=== PATIENT | female | born 1950 | race Caucasian/White ===

== ENCOUNTER 2016-06-05 19:25 | Inpatient (IN) | payer OTHER ==
[2016-06-05] MEDS ORDERED: ALBUTEROL SO4 0.083% IH SOL 2.5 MG/3 ML VIAL.NEB. NEB ONE ×6 (20:28→23:08)
[2016-06-05] MEDS ORDERED: IPRATROPIUM BR 0.02% 0.5 MG/2.5 ML VIAL.NEB. NEB ONE (20:28)
[2016-06-05] MEDS ORDERED: predniSONE 20 MG TABLET (UD) PO ONE (20:28)
[2016-06-05] MEDS ORDERED: predniSONE 20 MG TABLET (UD) ONE (20:28)
--- NOTE | 2016-06-05 20:29 | PDOC ---
History of Present Illness - History of Present Illness Initial Comments: 06/05/16 20:43 Patient is a 65 year old female with significant medical hx of asthma, hypothyroidism, and sleep apnea who is presenting to the ED with one week of nonproductive cough and wheezing. Patient complains of cough with associated chest pain, headaches, and body aches. The patient reports her cough has significantly worsened over the past few days. Shes been using her asthma pump with minimal relief. The patient is accompanied by her daughter who is also complaining of cough. Denies alcohol and tobacco use. Denies fever, chills, nausea, vomiting, diarrhea. <Sadia Cam - Last Filed: 06/05/16 20:43> - General History Source: Patient Exam Limitations: No Limitations <Ivan Rosa - Last Filed: 06/06/16 01:10> - General Chief Complaint: Asthma Stated Complaint: ASTHMA Time Seen by Provider: 06/05/16 20:18 Past History <Sadia Cam - Last Filed: 06/05/16 20:43> - Past Medical History Asthma: Yes Thyroid Disease: Yes (HYPO) - Surgical History Abdominal Surgery: Yes (TUBAL LIGATION) - Psycho/Social/Smoking Cessation Hx Anxiety: No Suicidal Ideation: No Smoking Status: Yes Smoking History: Never smoked Number of Cigarettes Smoked Daily: 0 Hx Alcohol Use: No Substance Use Type: None <Ivan Rosa - Last Filed: 06/06/16 01:10> - Past Medical History Allergies/Adverse Reactions: Allergies Allergy/AdvReac Type Severity Reaction Status Date / Time No Known Allergies Allergy Verified 06/05/16 19:33 Home Medications: Ambulatory Orders Levothyroxine [Synthroid -] 88 mcg PO DAILY 10/29/15 Montelukast Na [Singulair -] 10 mg PO DAILY 10/29/15 Pantoprazole Sodium [Protonix] 40 mg PO DAILY #30 tablet. 10/29/15 Review of Systems - Review of Systems Comments:: 06/05/16 20:45 GENERAL/CONSTITUTIONAL: Body aches. No fever or chills. No weakness. HEAD, EYES, EARS, NOSE AND THROAT: No change in vision. No ear pain or discharge. No sore throat. CARDIOVASCULAR: Chest pain, shortness of breath. RESPIRATORY: Cough, wheezing. No hemoptysis. GASTROINTESTINAL: No nausea, vomiting, diarrhea or constipation. GENITOURINARY: No dysuria, frequency, or change in urination. MUSCULOSKELETAL: No joint or muscle swelling or pain. No neck or back pain. SKIN: No rash NEUROLOGIC: Headache. No vertigo, loss of consciousness, or change in strength/ sensation. <DorinaSadia - Last Filed: 06/05/16 20:43> *Physical Exam - Vital Signs Last Vital Signs Temp Pulse Resp BP Pulse Ox 98.4 F 20 L 102 H 129/74 96 06/05/16 19:33 06/05/16 19:33 06/05/16 19:33 06/05/16 19:33 06/05/16 19:33 - Physical Exam Comments: 06/05/16 20:45 GENERAL: Awake, alert, and fully oriented, in no acute distress HEAD: No signs of trauma EYES: PERRLA, EOMI, sclera anicteric, conjunctiva clear ENT: Auricles normal inspection, hearing grossly normal, nares patent, oropharynx clear without exudates. Moist mucosa NECK: Normal ROM, supple, no lymphadenopathy, JVD, or masses LUNGS: Expiratory wheezes bilaterally. No crackles HEART: Regular rate and rhythm, normal S1 and S2, no murmurs, rubs or gallops ABDOMEN: Soft, nontender, normoactive bowel sounds. No guarding, no rebound. No masses EXTREMITIES: Normal range of motion, no edema. No clubbing or cyanosis. No cords, erythema, or tenderness NEUROLOGICAL: Cranial nerves II through XII grossly intact. Normal speech, normal gait SKIN: Warm, Dry, normal turgor, no rashes or lesions noted. ENDOCRINE: No increased thirst. No abnormal weight change. HEMATOLOGIC/LYMPHATIC: No anemia, easy bleeding, or history of blood clots. ALLERGIC/IMMUNOLOGIC: No hives or skin allergy. <DorinaSadia - Last Filed: 06/05/16 20:43> - Vital Signs Last Vital Signs Temp Pulse Resp BP Pulse Ox 98.4 F 20 L 102 H 129/74 96 06/05/16 19:33 06/05/16 19:33 06/05/16 19:33 06/05/16 19:33 06/05/16 19:33 <Ivan Rosa - Last Filed: 06/06/16 01:10> ED Treatment Course - Medications Given in the ED: ED Medications Discontinued Medications Generic Name Dose Route Start Last Admin Trade Name Sloane PRN Reason Stop Dose Admin Albuterol Sulfate 3 amp 06/05/16 20:28 06/05/16 20:35 Ventolin 0.083% Nebulizer Soln - NEB 06/05/16 20:29 3 amp ONCE ONE Administration Ipratropium [place] 1 amp 06/05/16 20:28 06/05/16 20:35 Atrovent 0.02% Nebulizer - NEB 06/05/16 20:29 1 amp ONCE ONE Administration Prednisone 60 mg 06/05/16 20:28 06/05/16 20:35 Deltasone - PO 06/05/16 20:29 60 mg ONCE ONE Administration <Sadia Cam - Last Filed: 06/05/16 20:43> - LABORATORY CBC & Chemistry Diagram: 06/05/16 22:23 06/06/16 00:22 <Ivan Rosa - Last Filed: 06/06/16 01:10> Medical Decision Making - Medical Decision Making 06/05/16 22:19 A portion of this note was documented by scribe services under my direction. I have reviewed the details of the note, within reason, and agree with the documentation with the following case summary and management plan written by me. Patient treated in the ED. Nursing notes are reviewed and incorporated into the medical decision-making. Vital signs reviewed. Peripheral IV access obtained by the nurse, laboratory studies are drawn and sent, reviewed and interpreted by myself. Vital Signs Temp Pulse Resp BP Pulse Ox 98.4 F 20 L 102 H 129/74 96 06/05/16 19:33 06/05/16 19:33 06/05/16 19:33 06/05/16 19:33 06/05/16 19:33 65-year-old female with past mental history of hypothyroidism, asthma presents with one week of wheezing. Patient reports that she has been treated for her upper respiratory infection last week with clarithromycin and improved. However , when she stopped, patient continued to have nonproductive cough and wheezing. Denies fevers. Reports some costochondritis with coughing. Patient's been using albuterol pump with some effect. The patient is accompanied by her daughter who also is a patient for an asthma exacerbation. Patient is given couple nebulizers and steroids. Patient continue wheeze so was given IV magnesium. Chest x-ray ordered and reviewed by me which time shows no infiltrates. The patient is improving clinically and appears more comfortable. If patient exam improves, we'll discharge with steroids. Patient's daughter does mention to me that she suspects that there is mold in the house. I instructed her to touch base with her landlord in terms of investigating this mold. 06/06/16 01:08 As of note: Initial HR of 20 was an error. Pt's HR is 102. Pt continued to have persistent wheezing despite numerous nebulizers, steroids, IV magnesium. Given these findings, decision was to admit patient to the hospital for asthma exacerbation. I had talked with the patient again. States that she was treated with clarithromycin for asthma exacerbation last week as well. CBC, BMP 06/05/16 22:23 06/06/16 00:22 CMP Sodium 142 mmol/L (136-145) 06/06/16 00:22 Potassium 3.7 mmol/L (3.5-5.1) 06/06/16 00:22 Chloride 107 mmol/L (98-107) 06/06/16 00:22 Carbon Dioxide 26 mmol/L (21-32) 06/06/16 00:22 Anion Gap 9 (8-16) 06/06/16 00:22 BUN 17 mg/dL (7-18) D 06/06/16 00:22 Creatinine 0.7 mg/dL (0.55-1.02) 06/06/16 00:22 Creat Clearance w eGFR > 60 (>60) 06/06/16 00:22 Random Glucose 148 mg/dL (74-106) H 06/06/16 00:22 Calcium 8.8 mg/dL (8.5-10.1) 06/06/16 00:22 Magnesium 2.9 mg/dL (1.8-2.4) H 06/06/16 00:22 Total Bilirubin 0.3 mg/dL (0.2-1.0) D 06/06/16 00:22 AST 16 U/L (15-37) D 06/06/16 00:22 ALT 28 U/L (12-78) D 06/06/16 00:22 Alkaline Phosphatase 109 U/L (45-117) D 06/06/16 00:22 Total Protein 6.9 g/dl (6.4-8.2) 06/06/16 00:22 Albumin 3.7 g/dl (3.4-5.0) 06/06/16 00:22 <Ivan Rosa - Last Filed: 06/06/16 01:10> *DC/Admit/Observation/Transfer - Attestations Scribe Attestion: 06/05/16 20:46 Documentation prepared by Sadia Cam, acting as medical technologist hematology for Ivan Rosa MD. <Sadia Cam - Last Filed: 06/05/16 20:43> - Discharge Dispostion Admit: Yes <Ivan Rosa - Last Filed: 06/06/16 01:10> Diagnosis at time of Disposition: Exacerbation of asthma - Discharge Dispostion Condition at time of disposition: Stable - Referrals Referrals: Bharathi Cuevas [Primary Care Provider] -
[2016-06-05] MEDS ORDERED: ALBUTEROL SO4 2.5/IPRATROPIUM 0.5 INH SOL 3 ML VIAL.NEB. NEB ONE (20:33)
[2016-06-05] MEDS ORDERED: AZITHROMYCIN 250 MG TABLET (FP) PO ONE (21:51)
[2016-06-05] MEDS ORDERED: MAGNESIUM SULF 50% (8.12 MEQ/2 ML-1 GM VIAL) IVPB ONE (21:54)
[2016-06-05] MEDS ORDERED: MAGNESIUM SULF 50% (8.12 MEQ/2 ML-1 GM VIAL) ONE (22:19)
[2016-06-05 22:50] LABS: BASOPHIL 0.4 % (0-2.0); EOSINOPHIL 3.6 % (0-4.5); MCH 30.1 pg (25.7-33.7); MCHC 33.5 g/dl (32.0-36.0); MEAN CELL VOLUME 89.7 fl (80-96); MEAN PLT VOLUME 9.9 fl (7.5-11.1); NEUTROPHILS 76.2 % (42.8-82.8); PLATELET COUNT 235 K/MM3 (134-434); RDW 14.7 % (11.6-15.6); WHITE BLOOD COUNT 8.9 K/mm3 (4.0-10.0)
[2016-06-06 00:58] LABS: ALBUMIN 3.7 g/dl (3.4-5.0); ANION GAP 9 (8-16); BILIRUBIN,TOTAL 0.3 mg/dL (0.2-1.0); CALCIUM 8.8 mg/dL (8.5-10.1); CO2 26 mmol/L (21-32); CREATININE 0.7 mg/dL (0.55-1.02); GLUCOSE,RANDOM 148 mg/dL (74-106); MAGNESIUM 2.9 mg/dL (1.8-2.4); SGOT/AST 16 U/L (15-37); SGPT/ALT 28 U/L (12-78); TOT PROT 6.9 g/dl (6.4-8.2)
[2016-06-06 00:59] LABS: ALK PHOS 109 U/L (45-117)
--- NOTE | 2016-06-06 01:42 | PN ---
<Kira Espinosa - Last Filed: 06/06/16 01:42> Teaching Attending Note Name of Resident: Aditi Hernandez <Jasbir Macario - Last Filed: 06/06/16 02:41> Teaching Attending Note ATTENDING PHYSICIAN STATEMENT I saw and evaluated the patient. I reviewed the resident's note and discussed the case with the resident. I agree with the resident's findings and plan as documented. SUBJECTIVE: Patient is a 65 year old female, accompanied by daughter, who is presented to the ED with one week of nonproductive cough and wheezing. Patient reported that her cough with associated chest pain, headaches, and body aches. The patient stated her cough has significantly worsened over the past few days. She noted that she had been using her asthma pump to treat symptoms with minimal relief. Daughter who is also complained of a cough. Denies alcohol and tobacco use. Denies fever, chills, nausea, vomiting, diarrhea. Past Medical History: Asthma, hypothyroidism, cholecystitis, and sleep apnea OBJECTIVE: Vital Signs: Last Vital Signs Temp Pulse Resp BP Pulse Ox 97.9 F 100 H 18 128/82 95 06/06/16 01:29 06/06/16 01:29 06/06/16 01:29 06/06/16 01:29 06/06/16 01:29 GENERAL: Awake, alert, and fully oriented, in no acute distress HEENT: Atraumatic. PERRLA, EOMI. Moist mucosa. No JVD LUNGS: (+) Bilateral wheezing, clear to auscultation bilaterally HEART: Regular rate and rhythm, normal S1 and S2, no murmurs, rubs or gallops, peripheral pulses normal and equal bilaterally. ABDOMEN: Soft, nontender, normoactive bowel sounds. No guarding, no rebound. No masses EXTREMITIES: Normal inspection, Normal range of motion, no edema. No clubbing or cyanosis. NEUROLOGICAL: Cranial nerves II through XII grossly intact. Normal speech, normal gait, no focal sensorimotor deficits SKIN: Warm, Dry, normal turgor, no rashes or lesions noted. Labs: CBCD WBC 8.9 K/mm3 (4.0-10.0) 06/05/16 22:23 RBC 4.40 M/mm3 (3.60-5.2) 06/05/16 22:23 Hgb 13.2 GM/dL (10.7-15.3) 06/05/16 22:23 Hct 39.4 % (32.4-45.2) 06/05/16 22: MCV 89.7 fl (80-96) 06/05/16 22:23 MCHC 33.5 g/dl (32.0-36.0) 06/05/16 22:23 RDW 14.7 % (11.6-15.6) 06/05/16 22:23 Plt Count 235 K/MM3 (134-434) 06/05/16 22:23 MPV 9.9 fl (7.5-11.1) 06/05/16 22:23 CMP Sodium 142 mmol/L (136-145) 06/06/16 00:22 Potassium 3.7 mmol/L (3.5-5.1) 06/06/16 00:22 Chloride 107 mmol/L (98-107) 06/06/16 00:22 Carbon Dioxide 26 mmol/L (21-32) 06/06/16 00:22 Anion Gap 9 (8-16) 06/06/16 00:22 BUN 17 mg/dL (7-18) D 06/06/16 00:22 Creatinine 0.7 mg/dL (0.55-1.02) 06/06/16 00:22 Creat Clearance w eGFR > 60 (>60) 06/06/16 00:22 Calcium 8.8 mg/dL (8.5-10.1) 06/06/16 00:22 Total Bilirubin 0.3 mg/dL (0.2-1.0) D 06/06/16 00:22 AST 16 U/L (15-37) D 06/06/16 00:22 ALT 28 U/L (12-78) D 06/06/16 00:22 Alkaline Phosphatase 109 U/L (45-117) D 06/06/16 00:22 Total Protein 6.9 g/dl (6.4-8.2) 06/06/16 00:22 Albumin 3.7 g/dl (3.4-5.0) 06/06/16 00:22 ASSESSMENT AND PLAN : Acute asthma exacerbation-possibly triggered by exposure to mold. -Prednisone 40 mg daily -Duonebs Q6 -Nasal Cannula -Continue home medications Other Chronic Conditions -Continue Home medications Recommend contact build department for inspection/treatment of mold. Admit to med surg. Documentation prepared by Jasbir Macario, acting as medical doctor md for Dr. Kira Espinosa MD.
--- NOTE | 2016-06-06 01:57 | HP ---
CHIEF COMPLAINT: SOB , wheeze and cough PCP: Dr. Indra Cuevas ) Dr. Sharad Bearden ([phone]) Asthma, Allergy and Immunology Dr. Blanca Talbert HISTORY OF PRESENT ILLNESS: Patient is a 65-year-old austrian speaking female presented with the chief complaints of shortness of breath, wheeze and cough since a week. As per the patient, these symptoms has been progressively getting worse. Has productive cough, producing whitish-clear sputum. Due to hacking cough, has chest tightness and feels that phlegm has been stuck in the central chest. Says there is no chest pain but discomfort which is non radiating, no aggravating or relieving factors. SOB even at rest with wheezing. But denies orthopnea, PND. Was diagnosed with Asthma 4 years ago. Patient mentions she moved to a new house 4 years ago and since then her daughter and son has frequent asthma exacerbation. They started noticing molds and they think that has worsened their asthma. Has a h/o Sleep apnea. She had a sleep study done 3 weeks ago and is in the process of getting a CPAP for sleep apnea. Has a Dog since 8 years. Patient mentions she has been getting seasonal allergies since 2 years for which she sees Dr. Orourke. Used to get one shot every week for a period of a year then one shot every 2 weeks and now she takes the shot every month. When she went to see her doctor 2 years ago for the allergy, she was given Clarithromycin for a week which didn't help her symptoms. Since she had her cholecystectomy last year, she has been moving her bowel 3-4 times/day. Bladder habit normal. Sleep disturbed. Appetite Normal. Denies palpitations, abdominal pain, nausea or vomiting, fever, chills, rigors or sweating. As per the ED physician, patients daughter had come to the ED with asthma exacerbation with the patient but was discharged since she was stable after she received the medication. ER course was notable for: (1) Afebrile, Tachycardic 108 bpm, RR-20; No leukocytosis; Mg-2.9 (after she received 2gm of Magnesium) (2) CXR-Looks normal, pending official report. (3) Albuterol neb x 4; Duoneb x 1 amp; Prednisone 40mg Daily Recent Travel: None PAST MEDICAL HISTORY: Asthma, Hypothyroidism, sleep apnea (not on CPAP yet) PAST SURGICAL HISTORY: Cholecystectomy, Tonsillectomy Social History: Smoking: Quit 7 years ago, used to smoke 1 pack in 2 days since age 20 Alcohol: Occasional Drugs: Denies Family History: Unknown Allergies Seasonal allergies No Known Allergies Allergy (Verified 06/05/16 19:33) HOME MEDICATIONS: Home Medications Medication Instructions Recorded Levothyroxine [Synthroid -] 88 mcg PO DAILY 10/29/15 Montelukast Na [Singulair -] 10 mg PO DAILY 10/29/15 Pantoprazole Sodium [Protonix] 40 mg PO DAILY #30 tablet. 10/29/15 REVIEW OF SYSTEMS CONSTITUTIONAL: Absent: fever, chills, diaphoresis, generalized weakness, malaise, loss of appetite, weight change HEENT: Absent: rhinorrhea, nasal congestion, throat pain, throat swelling, difficulty swallowing, mouth swelling, ear pain, eye pain, visual changes CARDIOVASCULAR: Absent: chest pain, syncope, palpitations, irregular heart rate, lightheadedness , peripheral edema RESPIRATORY: Present: cough, shortness of breath, dyspnea with exertion, wheezing Absent: orthopnea, stridor, hemoptysis GASTROINTESTINAL: Absent: abdominal pain, abdominal distension, nausea, vomiting, diarrhea, constipation, melena, hematochezia GENITOURINARY: Absent: dysuria, frequency, urgency, hesitancy, hematuria, flank pain, genital pain MUSCULOSKELETAL: Absent: myalgia, arthralgia, joint swelling, back pain, neck pain SKIN: Absent: rash, itching, pallor HEMATOLOGIC/IMMUNOLOGIC: Absent: easy bleeding, easy bruising, lymphadenopathy, frequent infections ENDOCRINE: Absent: unexplained weight gain, unexplained weight loss, heat intolerance, cold intolerance NEUROLOGIC: Absent: headache, focal weakness or paresthesias, dizziness, unsteady gait, seizure, mental status changes, bladder or bowel incontinence PSYCHIATRIC: Absent: anxiety, depression, suicidal or homicidal ideation, hallucinations. PHYSICAL EXAMINATION Vital Signs - 24 hr 06/05/16 06/06/16 06/06/16 19:33 00:06 01:29 Temperature 98.4 F 97.9 F Pulse Rate 20 L Pulse Rate [ 108 H 100 H Right Brachial] Respiratory 102 H 20 18 Rate Blood Pressure 129/74 Blood Pressure 108/70 128/82 [Right Arm] O2 Sat by Pulse 96 95 Oximetry (%) GENERAL: Morbidly obese patient, Awake, alert, and fully oriented, in no acute distress. HEAD: Normal with no signs of trauma. EYES: EOM intact, no pallor or icterus. EARS, NOSE, THROAT: Ears normal. Moist mucous membranes. NECK: Supple. LUNGS: Breath sounds equal, expiratory wheeze with occasional rhonchi+ . No accessory muscle use. HEART: Regular rate and rhythm, normal S1 and S2 without murmur, rub or gallop. ABDOMEN: Soft, nontender, not distended, normoactive bowel sounds, no guarding, no rebound, no masses. No hepatomegaly or splenomegaly. MUSCULOSKELETAL: Normal range of motion at all joints. No bony deformities or tenderness. No CVA tenderness. UPPER EXTREMITIES: 2+ pulses, warm, well-perfused. No cyanosis. No clubbing. No peripheral edema. LOWER EXTREMITIES: 2+ pulses, warm, well-perfused. No calf tenderness. No peripheral edema. NEUROLOGICAL: Cranial nerves II-XII intact. Normal speech. Gait no observed. PSYCHIATRIC: Cooperative. Good eye contact. Appropriate mood and affect. SKIN: Warm, dry, normal turgor, no rashes or lesions noted, normal capillary refill. Laboratory Results - last 24 hr 06/05/16 06/05/16 06/06/16 22:23 22:23 00:22 WBC 8.9 RBC 4.40 Hgb 13.2 Hct 39.4 MCV 89.7 MCHC 33.5 RDW 14.7 Plt Count 235 MPV 9.9 Neutrophils % 76.2 Lymphocytes % 16.6 D Monocytes % 3.2 L Eosinophils % 3.6 Basophils % 0.4 D Sodium Cancelled 142 Potassium Cancelled 3.7 Chloride Cancelled 107 Carbon Dioxide Cancelled 26 Anion Gap Cancelled 9 BUN Cancelled 17 D Creatinine Cancelled 0.7 Creat Clearance w eGFR Cancelled > 60 Random Glucose Cancelled 148 H Calcium Cancelled 8.8 Magnesium Cancelled 2.9 H Total Bilirubin Cancelled 0.3 D AST Cancelled 16 D ALT Cancelled 28 D Alkaline Phosphatase Cancelled 109 D Total Protein Cancelled 6.9 Albumin Cancelled 3.7 ASSESSMENT/PLAN: Patient is a 65-year-old austrian speaking female with significant past medical history of Asthma (Diagnosed 5 years ago); Hypothyroidism; Sleep Apnea (not on CPAP) presented with the chief complaints of shortness of breath, wheeze and cough since a week. # Asthma exacerbation Patient presented with worsening sob, productive cough and wheeze that didn' t improve despite several nebulization treatements, Magnesium and steroids On arrival, patient was Afebrile, Tachycardic 108 bpm, RR-20; No leukocytosis ; Mg-2.9 (after she received 2gm of Magnesium) CXR- Looks normal, pending official report. In the ED, patient received Albuterol neb x 4; Duoneb x 1 amp; Prednisone 40mg Daily Placed on observation in Med-Surg Duoneb nebulization Q6H Nasal oxygen Prednisone 40mg Daily Resume Montelukast 10mg PO PEFR-pending CXR to be repeated tomorrow Discussed in depth that the trigger could be due to the mold in the house and the dog since 2 other family members are being affected at the same time period. # Hypothyroidism Resume Levothyroxine # Sleep Apnea Patient is in the process of getting a CPAP # FEN Not on IV fluids Electrolytes to be repeated in am Regular diet # Prophylaxis For DVT- Patient is ambulating, only placed on observation so no anticoagulation indicated. SCDs placed For GI- Resumed Protonix 40mg Daily # Code Status- Full Code # Dispo: Placed on observation in Med-Surg. Probably can be discharged in am if stable. Illness, Investigation and Plan of care explained to the patient and her daughter. They verbalized understanding. Case seen and discussed with Dr. Espinosa. Visit type - Emergency Visit Emergency Visit: Yes ED Registration Date: 06/06/16 Care time: The patient presented to the Emergency Department on the above date and was hospitalized for further evaluation of their emergent condition. - New Patient This patient is new to me today: Yes Date on this admission: 06/06/16 - Critical Care Critical Care patient: No
[2016-06-06 02:48] VITALS: BMI 29.9
[2016-06-06] MEDS: ALBUTEROL SO4 2.5/IPRATROPIUM 0.5 INH SOL 3 ML VIAL.NEB. NEB SCH ×2 (06:15→11:00)
[2016-06-06] MEDS: LEVOTHYROXINE NA 88 MCG TABLET (FP) PO SCH (06:44)
[2016-06-06 07:35] LABS: MCH 30.2 pg (25.7-33.7); MCHC 33.5 g/dl (32.0-36.0); MEAN CELL VOLUME 90.3 fl (80-96); MEAN PLT VOLUME 9.9 fl (7.5-11.1); NEUTROPHILS 90.5 % (42.8-82.8); PLATELET COUNT 242 K/MM3 (134-434); RDW 14.6 % (11.6-15.6); WHITE BLOOD COUNT 5.1 K/mm3 (4.0-10.0)
[2016-06-06 07:55] LABS: ALBUMIN 3.6 g/dl (3.4-5.0); ALK PHOS 104 U/L (45-117); ANION GAP 11 (8-16); BILIRUBIN,TOTAL 0.3 mg/dL (0.2-1.0); CALCIUM 8.9 mg/dL (8.5-10.1); CO2 24 mmol/L (21-32); CREATININE 0.7 mg/dL (0.55-1.02); GLUCOSE,RANDOM 148 mg/dL (74-106); SGOT/AST 14 U/L (15-37); SGPT/ALT 28 U/L (12-78); TOT PROT 6.9 g/dl (6.4-8.2)
[2016-06-06] MEDS: PANTOPRAZOLE 40 MG TABLET (FP) PO SCH (09:54)
[2016-06-06] MEDS: MONTELUKAST NA 10 MG TABLET PO SCH (09:54)
[2016-06-06] MEDS ORDERED: predniSONE 20 MG TABLET (UD) PO SCH (10:00)
--- NOTE | 2016-06-06 10:26 | HOSP ---
Subjective - Review of Symptoms Subjective: evaluated pt bedside continues to have wheezing with no significant imrpovement in breathing. continues to have productive cough of whitish-yellow sputum. has not gotten out of bed due to difficulty breathing. mild chest discomfort when she coughs substernal non radiating and dull feeling. has not had exacerbation in over year. never been intubated for asthma in the past Current Medications Generic Name Dose Route Start Last Admin Trade Name Freq PRN Reason Stop Dose Admin Albuterol/Ipratropium 1 amp 06/06/16 06:00 Duoneb - NEB QIDR SUSAN Levothyroxine Sodium 88 mcg 06/06/16 07:00 06/06/16 06:44 Synthroid - PO 88 mcg DAILY@0700 SUSAN Administration Montelukast Sodium 10 mg 06/06/16 10:00 06/06/16 09:54 Singulair - PO 10 mg DAILY SUSAN Administration Pantoprazole Sodium 40 mg 06/06/16 10:00 06/06/16 09:54 Protonix - PO 40 mg DAILY SUSAN Administration Prednisone 40 mg 06/06/16 10:00 06/06/16 09:54 Deltasone - PO 40 mg DAILY SUSAN Administration Last Vital Signs Temp Pulse Resp BP Pulse Ox 97.9 F 102 H 18 136/79 94 L 06/06/16 02:48 06/06/16 02:48 06/06/16 02:48 06/06/16 02:48 06/06/16 02:48 General NAD CV S1 S2 RRR no murmur/rub/gallop Lungs diffuse expiratory wheezing, poor air entry A/P 65yo F with asthma and hypothyroid who was admitted for further evaluation of their emergent condition 1. Acute asthma exacerbation- likely exacerbated by poor living conditions. already received 40mg prednisone will give 40mg IV and reassess. cont azithromycin 250mg to complete 5 day course. confirmed home inhalers, will re- start at this time. (do not have dulera, will substitute symbocort) cont nebs. supplemental oxygen to maintain spO2 >90%. encouraged pt to find alternative living arrangements as her apartment is inspected for mold. Physical Examination Vital Signs: Vital Signs Temperature 97.9 F 06/06/16 02:48 Pulse Rate 102 H 06/06/16 02:48 Respiratory Rate 18 06/06/16 02:48 Blood Pressure 136/79 06/06/16 02:48 O2 Sat by Pulse Oximetry (%) 94 L 06/06/16 02:48 Labs: CBC, BMP 06/06/16 06:05 06/06/16 06:05
[2016-06-06] MEDS ORDERED: BUDESONIDE/FORMETEROL FUMARATE 80/4.5 mcg INHALER IH SCH (11:15)
[2016-06-06] MEDS ORDERED: methylPREDNISolone NA SUCC 40 MG/1 ML VIAL IVPB ONE (11:30)
[2016-06-06] MEDS ORDERED: PT OWN MED DRAWER 7, Y5N ONE ×2 (11:53→14:45)
[2016-06-06] MEDS: AZITHROMYCIN 250 MG TABLET (FP) PO SCH (11:57)
[2016-06-06] MEDS: ACLIDINIUM BROMIDE 400 MCG/INH AERO.POWD IH SCH ×2 (14:37→21:37)
--- NOTE | 2016-06-06 15:10 | PN ---
Progress Note (short form) - Note Progress Note: PULMONARY CONSULTATION DICTATED 06/06/16 IMP CHRONIC PERSISTENT ASTHMA WITH ACUTE EXACERBATION [facility] HYPOTHYROID PLAN IV STEROIDS INHALED BRONCHODILATORS O2 BIPAP AT [facility] [address] [place] Problem List - Problems (1) Asthma exacerbation Code(s): J45.901 - UNSPECIFIED ASTHMA WITH (ACUTE) EXACERBATION (2) Sleep apnea Code(s): G47.30 - SLEEP APNEA, UNSPECIFIED (3) Hypothyroidism Code(s): E03.9 - HYPOTHYROIDISM, UNSPECIFIED
[2016-06-06] MEDS: methylPREDNISolone NA SUCC 40 MG/1 ML VIAL IVPB SCH ×2 (17:35→21:36)
[2016-06-06] MEDS: ALBUTEROL SO4 0.083% IH SOL 2.5 MG/3 ML VIAL.NEB. NEB PRN ×2 (18:25→23:12)
[2016-06-06] MEDS: BUDESONIDE/FORMETEROL FUMARATE 160/4.5 mcg INHALER IH SCH (21:37)
[2016-06-07] MEDS: methylPREDNISolone NA SUCC 40 MG/1 ML VIAL IVPB SCH ×4 (02:23→20:25)
--- NOTE | 2016-06-07 02:57 | CONS ---
PULMONARY CONSULTATION DATE OF CONSULTATION: 06/06/2016 REFERRING PHYSICIAN: Evette Rodriguez MD This is a 65-year-old female known to me on previous office visit. PAST MEDICAL HISTORY: Chronic cyst and asthma maintained on inhaled bronchodilators, hypothyroidism, obstructive sleep apnea, patient recently diagnosed, going for CPAP titration later this week, admitted to [facility] complaining of 1-week history of increasing shortness of breath, cough and bronchospasm. Patient denies any fever, chills, nausea, vomiting or diaphoresis. Denies any recent URI. States that her cough is nonproductive, associated with headaches and generalized body aches. The patient also states that she has been using an inhaled beta agonist without any improvement. Patient presents to the emergency room with the above. In the ER, she was felt to have an acute exacerbation of asthma. She was started on IV steroids, inhaled bronchodilators and admitted for monitoring. Patient stated for a nonsmoker. There is no history of occupational exposure to chemicals or fumes. Of note, her asthma started approximately 4 years ago after moving into a new apartment. At that time, apparently her son and [id number] all developed asthmatic symptoms, possibly secondary to mold spores and environmental issues. Past medical history again includes hypothyroidism, asthma and obstructive sleep apnea. REVIEW OF SYSTEMS: Respiratory: Positive cough, positive bronchospasms, positive dyspnea on exertion. Cardiac: No chest pain, no palpitations, no fevers, no chills. Gastrointestinal: No nausea, no vomiting, no abdominal pain. Extremities: No lower extremity edema. CURRENT MEDICATIONS: Symbicort 80/4.5, Tudorza, DuoNeb, Singulair, Protonix and Synthroid. PHYSICAL EXAMINATION: General: The patient is a well-developed, well-nourished female, awake, alert, mildly dyspneic. Vital signs: She is currently afebrile. Blood pressure 115/73. Respiratory rate is 22. O2 saturation is 94% on room air. HEENT exam: Normocephalic/atraumatic . Neck is supple. Heart: Regular with S1, S2. Lungs: Bilateral expiratory and inspiratory wheezes. Abdomen: Soft, bowel sounds positive. Extremities: No cyanosis or edema. LABS: WBC is 5.1, hemoglobin 13.4, hematocrit 40.2 with a platelet count of 242 ,000. BUN 16, creatinine 0.7. Chest x-ray: No acute infiltrates or effusions. IMPRESSION: 1. Chronic persistent asthma with acute exacerbation. 2. History of hypothyroidism. 3. Obstructive sleep apnea. PLAN: 1. IV steroids 2. Inhaled bronchodilators 3. Supplemental O2, monitor peak flow. 4. BiPAP at night. DIANA DOWNING M.D. [id number] MTDD
[2016-06-07] MEDS: LEVOTHYROXINE NA 88 MCG TABLET (FP) PO SCH (06:16)
[2016-06-07] MEDS ORDERED: PT OWN MED DRAWER 7, Y5N ONE (09:04)
[2016-06-07] MEDS: ACLIDINIUM BROMIDE 400 MCG/INH AERO.POWD IH SCH ×2 (09:08→21:38)
[2016-06-07] MEDS: PANTOPRAZOLE 40 MG TABLET (FP) PO SCH (09:08)
[2016-06-07] MEDS: MONTELUKAST NA 10 MG TABLET PO SCH (09:08)
[2016-06-07] MEDS: AZITHROMYCIN 250 MG TABLET (FP) PO SCH (09:10)
[2016-06-07] MEDS: BUDESONIDE/FORMETEROL FUMARATE 160/4.5 mcg INHALER IH SCH ×2 (10:00→21:37)
[2016-06-07] MEDS: ALBUTEROL SO4 0.083% IH SOL 2.5 MG/3 ML VIAL.NEB. NEB PRN ×3 (11:24→22:15)
--- NOTE | 2016-06-07 12:02 | PN ---
Progress Note, Physician History of Present Illness: pulmonary alert,less congested,less dyspneic. - Current Medication List Current Medications: Active Medications Aclidinium [place] (Tudorza -) 1 puff IH BID [facility] Last Admin: 06/07/16 09:08 Dose: 1 puff Albuterol Sulfate (Ventolin 0.083% Nebulizer Soln -) 1 amp NEB Q4H PRN PRN Reason: SHORT OF BREATH/WHEEZING Last Admin: 06/07/16 11:24 Dose: 1 amp Azithromycin (Zithromax -) 250 mg PO DAILY [facility] Last Admin: 06/07/16 09:10 Dose: 250 mg Budesonide/Formoterol Fumarate (Symbicort 160/4.5mcg -) 2 puff IH BID [facility] Last Admin: 06/06/16 21:37 Dose: 2 puff Levothyroxine Sodium (Synthroid -) 88 mcg PO DAILY@0700 [facility] Last Admin: 06/07/16 06:16 Dose: 88 mcg Methylprednisolone Sodium Succinate (Solu-Medrol -) 40 mg IVPB Q6H-IV [facility] Last Admin: 06/07/16 09:08 Dose: 40 mg Montelukast Sodium (Singulair -) 10 mg PO DAILY [facility] Last Admin: 06/07/16 09:08 Dose: 10 mg Pantoprazole Sodium (Protonix -) 40 mg PO DAILY [facility] Last Admin: 06/07/16 09:08 Dose: 40 mg - Objective Vital Signs: Vital Signs Temperature 98.3 F 06/07/16 06:00 Pulse Rate 95 H 06/07/16 11:24 Respiratory Rate 20 06/07/16 06:00 Blood Pressure 102/64 06/07/16 06:00 O2 Sat by Pulse Oximetry (%) 95 06/07/16 11:24 Constitutional: Yes: Well Nourished, Calm Eyes: Yes: WNL HENT: Yes: WNL Neck: Yes: WNL Cardiovascular: Yes: Regular Rate and Rhythm, S1, S2 Respiratory: Yes: Wheezes (liseth wheezes bilaterally) Gastrointestinal: Yes: Normal Bowel Sounds, Soft Extremities: Yes: WNL Edema: No Labs: CBC, BMP 06/06/16 06:05 06/06/16 06:05 Problem List - Problems (1) Asthma exacerbation Code(s): J45.901 - UNSPECIFIED ASTHMA WITH (ACUTE) EXACERBATION (2) Sleep apnea Code(s): G47.30 - SLEEP APNEA, UNSPECIFIED (3) Hypothyroidism Code(s): E03.9 - HYPOTHYROIDISM, UNSPECIFIED Assessment/Plan IMP CHRONIC PERSISTENT ASTHMA WITH ACUTE EXACERBATION OSAS HYPOTHYROID PLAN IV STEROIDS REDNISONE IN AM INHALED BRONCHODILATORS 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
--- NOTE | 2016-06-07 13:12 | PN ---
Progress Note (short form) - Note Progress Note: c/o wheezing on exertion, only able to ambulate to bathroom, can not go further. productive cough has improved. only clear sputum now. denies Cp, fever , chills, N/V/C/D Current Medications Generic Name Dose Route Start Last Admin Trade Name Freq PRN Reason Stop Dose Admin Aclidinium [place] 1 puff 06/06/16 11:30 06/07/16 09:08 Tudorza - IH 1 puff BID SUSAN Administration Albuterol Sulfate 1 amp 06/06/16 15:34 06/07/16 11:24 Ventolin 0.083% Nebulizer Soln - NEB 1 amp Q4H PRN Administration SHORT OF BREATH/WHEEZING Azithromycin 250 mg 06/06/16 11:15 06/07/16 09:10 Zithromax - PO 250 mg DAILY SUSAN Administration Budesonide/Formoterol Fumarate 2 puff 06/06/16 22:00 06/06/16 21:37 Symbicort 160/4.5mcg - IH 2 puff BID SUSAN Administration Levothyroxine Sodium 88 mcg 06/06/16 07:00 06/07/16 06:16 Synthroid - PO 88 mcg DAILY@0700 SUSAN Administration Methylprednisolone Sodium Succinate 40 mg 06/06/16 15:15 06/07/16 09:08 Solu-Medrol - IVPB 40 mg Q6H-IV SUSAN Administration Montelukast Sodium 10 mg 06/06/16 10:00 06/07/16 09:08 Singulair - PO 10 mg DAILY SUSAN Administration Pantoprazole Sodium 40 mg 06/06/16 10:00 06/07/16 09:08 Protonix - PO 40 mg DAILY SUSAN Administration Last Vital Signs Temp Pulse Resp BP Pulse Ox 98.3 F 95 H 20 102/64 95 06/07/16 06:00 06/07/16 11:24 06/07/16 06:00 06/07/16 06:00 06/07/16 11:24 General NAD CV S1 S2 RRR no murmur/rub/gallop Lungs diffuse expiratory wheezing, poor air entry abdomen- soft NT/ND extremities no edema A/P 65yo F with asthma and hypothyroid who was admitted for further evaluation of their emergent condition 1. Acute asthma exacerbation- only mild improvement. pulmonary evalauted yesterday, started on solumedrol 40mg Q6H. will cont at current dosing at this time. Azithromycin day 3. inhlaers switched by pulmonary. will cont to monitor. nebs prn. supplemental oxygen to maintain spO2 >90%. encouraged pt to find alternative living arrangements as her apartment is inspected for mold. 2. Hypothyroid- synthroid 3. DVT ppx- hep sq Visit type - Emergency Visit Emergency Visit: Yes ED Registration Date: 06/06/16 Care time: The patient presented to the Emergency Department on the above date and was hospitalized for further evaluation of their emergent condition. - New Patient This patient is new to me today: No - Critical Care Critical Care patient: No - Discharge Referral Referred to [facility] Med P.C[facility] No
--- NOTE | 2016-06-07 22:33 | EKG ---
Test Reason : Blood Pressure : / mmHG Vent. Rate : 093 BPM Atrial Rate : 093 BPM P-R Int : 166 ms QRS Dur : 084 ms QT Int : 372 ms P-R-T Axes : 034 064 040 degrees QTc Int : 462 ms NORMAL SINUS RHYTHM NORMAL ECG WHEN COMPARED WITH ECG OF 29-OCT-2015 15:45, NO SIGNIFICANT CHANGE WAS FOUND Confirmed by BRITTANIE HERNANDEZ MD ([id number]) on 06/07/2016 10:32:30 PM Referred By: Confirmed By:BRITTANIE HERNANDEZ MD
[2016-06-08] MEDS: methylPREDNISolone NA SUCC 40 MG/1 ML VIAL IVPB SCH ×4 (02:03→21:46)
[2016-06-08] MEDS: LEVOTHYROXINE NA 88 MCG TABLET (FP) PO SCH (06:01)
[2016-06-08] MEDS ORDERED: PT OWN MED DRAWER 7, Y5N ONE ×3 (08:43→14:29)
[2016-06-08] MEDS: MONTELUKAST NA 10 MG TABLET PO SCH (09:18)
[2016-06-08] MEDS: ACLIDINIUM BROMIDE 400 MCG/INH AERO.POWD IH SCH ×2 (09:18→21:46)
[2016-06-08] MEDS: PANTOPRAZOLE 40 MG TABLET (FP) PO SCH (09:18)
[2016-06-08] MEDS: AZITHROMYCIN 250 MG TABLET (FP) PO SCH (09:20)
[2016-06-08] MEDS: BUDESONIDE/FORMETEROL FUMARATE 160/4.5 mcg INHALER IH SCH ×3 (09:20→21:46)
[2016-06-08] MEDS: ALBUTEROL SO4 0.083% IH SOL 2.5 MG/3 ML VIAL.NEB. NEB PRN ×2 (11:11→17:22)
--- NOTE | 2016-06-08 12:02 | PN ---
Teaching Attending Note Name of Resident: Nancy Reddy ATTENDING PHYSICIAN STATEMENT I saw and evaluated the patient. I reviewed the resident's note and discussed the case with the resident. I agree with the resident's findings and plan as documented. SUBJECTIVE:states wheezing has improved. cough no longer productive. denies CP, fever, chills, N/V/C/D OBJECTIVE: Last Vital Signs Temp Pulse Resp BP Pulse Ox 98.3 F 77 24 120/80 96 06/08/16 10:04 06/08/16 10:12 06/08/16 09:25 06/08/16 09:25 06/08/16 10:12 General NAD CV S1 S2 RRR no murmur/rub/gallop Lungs minimal wheezing, good lung expansion, no crackles abdomen- soft NT/ND extremities no edema A/P 65yo F with asthma and hypothyroid who was admitted for further evaluation of their emergent condition 1. Acute asthma exacerbation-clinically improved. + Flu A. will not treat at this time as symptoms started a week ago. cont steroid dosing at this time, Pulmonary recommends further titration of IV steroid and transition to po in the am. azithromycin day 4. will complete 5 day course. requesting neb machine for home. pulmonary on board. 2. Hypothyroid- synthroid 3. DVT ppx- hep sq 4. d/c planning in the AM.
--- NOTE | 2016-06-08 12:56 | PN ---
Progress Note, Physician History of Present Illness: PULMONARY ALERT,STILL CONGESTED,+COUGH. + INFLUENZA A.PT SLEPT WELL ON BIPAP - Current Medication List Current Medications: Active Medications Aclidinium [place] (Tudorza -) 1 puff IH BID [facility] Last Admin: 06/08/16 09:18 Dose: 1 puff Albuterol Sulfate (Ventolin 0.083% Nebulizer Soln -) 1 amp NEB Q4H PRN PRN Reason: SHORT OF BREATH/WHEEZING Last Admin: 06/08/16 11:11 Dose: 1 amp Azithromycin (Zithromax -) 250 mg PO DAILY [facility] Last Admin: 06/08/16 09:20 Dose: 250 mg Budesonide/Formoterol Fumarate (Symbicort 160/4.5mcg -) 2 puff IH BID [facility] Last Admin: 06/08/16 12:03 Dose: 2 puff Levothyroxine Sodium (Synthroid -) 88 mcg PO DAILY@0700 [facility] Last Admin: 06/08/16 06:01 Dose: 88 mcg Methylprednisolone Sodium Succinate (Solu-Medrol -) 40 mg IVPB Q6H-IV [facility] Last Admin: 06/08/16 09:18 Dose: 40 mg Montelukast Sodium (Singulair -) 10 mg PO DAILY [facility] Last Admin: 06/08/16 09:18 Dose: 10 mg Pantoprazole Sodium (Protonix -) 40 mg PO DAILY [facility] Last Admin: 06/08/16 09:18 Dose: 40 mg - Objective Vital Signs: Vital Signs Temperature 98.3 F 06/08/16 10:04 Pulse Rate 77 06/08/16 10:12 Respiratory Rate 24 06/08/16 09:25 Blood Pressure 120/80 06/08/16 09:25 O2 Sat by Pulse Oximetry (%) 96 06/08/16 10:12 Constitutional: Yes: Well Nourished, Calm Eyes: Yes: WNL HENT: Yes: WNL Neck: Yes: WNL Cardiovascular: Yes: Regular Rate and Rhythm, S1, S2 Respiratory: Yes: Wheezes (KAILA WHEEZES) Gastrointestinal: Yes: Normal Bowel Sounds, Soft Extremities: Yes: WNL Edema: No Problem List - Problems (1) Asthma exacerbation Code(s): J45.901 - UNSPECIFIED ASTHMA WITH (ACUTE) EXACERBATION (2) Sleep apnea Code(s): G47.30 - SLEEP APNEA, UNSPECIFIED (3) Hypothyroidism Code(s): E03.9 - HYPOTHYROIDISM, UNSPECIFIED Assessment/Plan IMP CHRONIC PERSISTENT ASTHMA WITH ACUTE EXACERBATION OSAS HYPOTHYROID INFLUENZA A PLAN IV STEROIDS REDNISONE IN AM INHALED BRONCHODILATORS 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
--- NOTE | 2016-06-08 15:22 | PN ---
Physical Exam: SUBJECTIVE: Patient seen and examined still with cough, increased congestion. Afebrile, no chills. OBJECTIVE: Vital Signs Period Temp Pulse Resp BP Sys/Rowell Pulse Ox Last 24 Hr 97.8 F-98.4 F 76-98 18-24 100-125/58-80 95-98 GENERAL: The patient is awake, alert, and fully oriented, in no acute distress. HEAD: Normal with no signs of trauma. LUNGS: Breath sounds decreased, clear to auscultation bilaterally, +wheezes, scattered rhonchi HEART: Regular rate and rhythm, S1, S2 without murmur, rub or gallop. ABDOMEN: Soft, nontender, nondistended, normoactive bowel sounds, no guarding, no rebound, no hepatosplenomegaly, no masses. EXTREMITIES: 2+ pulses, warm, well-perfused, no edema. NEUROLOGICAL: Cranial nerves II through XII grossly intact. Normal speech, gait not observed. PSYCH: Normal mood, normal affect. SKIN: Warm, dry, normal turgor, no rashes or lesions noted Active Medications Generic Name Dose Route Start Last Admin Trade Name Freq PRN Reason Stop Dose Admin Aclidinium [place] 1 puff 06/06/16 11:30 06/08/16 09:18 Tudorza - IH 1 puff BID SUSAN Administration Albuterol Sulfate 1 amp 06/06/16 15:34 06/08/16 11:11 Ventolin 0.083% Nebulizer Soln - NEB 1 amp Q4H PRN Administration SHORT OF BREATH/WHEEZING Azithromycin 250 mg 06/06/16 11:15 06/08/16 09:20 Zithromax - PO 250 mg DAILY SUSAN Administration Budesonide/Formoterol Fumarate 2 puff 06/06/16 22:00 06/08/16 12:03 Symbicort 160/4.5mcg - IH 2 puff BID SUSAN Administration Levothyroxine Sodium 88 mcg 06/06/16 07:00 06/08/16 06:01 Synthroid - PO 88 mcg DAILY@0700 SUSAN Administration Methylprednisolone Sodium Succinate 40 mg 06/06/16 15:15 06/08/16 09:18 Solu-Medrol - IVPB 40 mg Q6H-IV SUSAN Administration Montelukast Sodium 10 mg 06/06/16 10:00 06/08/16 09:18 Singulair - PO 10 mg DAILY SUSAN Administration Pantoprazole Sodium 40 mg 06/06/16 10:00 06/08/16 09:18 Protonix - PO 40 mg DAILY SUSAN Administration ASSESSMENT/PLAN: 65 year old female with PMHx of asthma, sleep apnea, hypothyroid, presented with cough, sob, admitted for asthma exacerbation. # Asthma exacerbation: -still congested this am, with scattered wheeze and ronchi; -continue IV steroids 40mg IVPB q6h -turdoza 1 puff bid (laba) -singulair 10mg po daily -symbicort 2 puff BID -f/u pulm #Sleep apnea: -was supposed to get sleep study as outpatient -no cpap at home -using bipap here overnight; getting more restful sleep #hypothyroidism: -levothyroxine 88mcg daily #tested positive for flu: -supportive care: out of window for treatment FEN: Fluids: po Electrolytes : wnl Diet: regular VTE prophylaxis: ambulating Disposition: monitor breathing, cont iv steroids re eval Visit type - Emergency Visit Emergency Visit: Yes ED Registration Date: 06/06/16 Care time: The patient presented to the Emergency Department on the above date and was hospitalized for further evaluation of their emergent condition. - New Patient This patient is new to me today: Yes Date on this admission: 06/08/16 - Critical Care Critical Care patient: No
[2016-06-09] MEDS: methylPREDNISolone NA SUCC 40 MG/1 ML VIAL IVPB SCH ×3 (02:21→09:30)
[2016-06-09] MEDS: LEVOTHYROXINE NA 88 MCG TABLET (FP) PO SCH (06:43)
[2016-06-09 08:42] LABS: BASOPHIL 0.2 % (0-2.0); MCH 30.1 pg (25.7-33.7); MCHC 33.4 g/dl (32.0-36.0); MEAN CELL VOLUME 90.2 fl (80-96); MEAN PLT VOLUME 9.9 fl (7.5-11.1); NEUTROPHILS 90.3 % (42.8-82.8); PLATELET COUNT 260 K/MM3 (134-434); RDW 14.7 % (11.6-15.6); WHITE BLOOD COUNT 13.6 K/mm3 (4.0-10.0)
[2016-06-09] MEDS ORDERED: PT OWN MED DRAWER 7, Y5N ONE (09:00)
[2016-06-09] MEDS: ACLIDINIUM BROMIDE 400 MCG/INH AERO.POWD IH SCH ×2 (09:20→23:02)
[2016-06-09] MEDS: BUDESONIDE/FORMETEROL FUMARATE 160/4.5 mcg INHALER IH SCH ×2 (09:20→23:02)
[2016-06-09] MEDS: PANTOPRAZOLE 40 MG TABLET (FP) PO SCH (09:21)
[2016-06-09] MEDS: MONTELUKAST NA 10 MG TABLET PO SCH (09:21)
[2016-06-09] MEDS: AZITHROMYCIN 250 MG TABLET (FP) PO SCH (09:21)
[2016-06-09 09:30] LABS: CALCIUM 8.9 mg/dL (8.5-10.1); CREATININE 0.7 mg/dL (0.55-1.02)
[2016-06-09] MEDS: ALBUTEROL SO4 0.083% IH SOL 2.5 MG/3 ML VIAL.NEB. NEB PRN ×2 (10:59→17:59)
--- NOTE | 2016-06-09 12:29 | PN ---
Progress Note (short form) - Note Progress Note: PULMONARY States breathing better. No fevers or chills. +cough with white sputum, sometimes green. Last Vital Signs Temp Pulse Resp BP Pulse Ox 98.1 F 84 24 110/70 97 06/09/16 09:22 06/09/16 09:19 06/09/16 09:19 06/09/16 09:19 06/08/16 23:46 Gen: NAD in chair Heart: RRR Lung: scattered rhonchi Abd: soft, nontender Ext: no edema CBC, BMP 06/09/16 06:20 06/09/16 06:20 Active Medications Aclidinium [place] (Tudorza -) 1 puff IH BID [facility] Last Admin: 06/09/16 09:20 Dose: 1 puff Albuterol Sulfate (Ventolin 0.083% Nebulizer Soln -) 1 amp NEB Q4H PRN PRN Reason: SHORT OF BREATH/WHEEZING Last Admin: 06/09/16 10:59 Dose: 1 amp Azithromycin (Zithromax -) 250 mg PO DAILY [facility] Last Admin: 06/09/16 09:21 Dose: 250 mg Budesonide/Formoterol Fumarate (Symbicort 160/4.5mcg -) 2 puff IH BID [facility] Last Admin: 06/09/16 09:20 Dose: 2 puff Levothyroxine Sodium (Synthroid -) 88 mcg PO DAILY@0700 [facility] Last Admin: 06/09/16 06:43 Dose: 88 mcg Methylprednisolone Sodium Succinate (Solu-Medrol -) 40 mg IVPB Q8H-IV [facility] Last Admin: 06/09/16 11:05 Dose: 40 mg Montelukast Sodium (Singulair -) 10 mg PO DAILY [facility] Last Admin: 06/09/16 09:21 Dose: 10 mg Pantoprazole Sodium (Protonix -) 40 mg PO DAILY [facility] Last Admin: 06/09/16 09:21 Dose: 40 mg A/P Acute Asthma Exacerbation Influenza A Obstructive Sleep Apnea Hypothyroidism - can change steroids to PO prednisone 40mg daily - inhaled bronchodilators - monitor peak flow - CPAP at night - DVT prophylaxis - likely can be discharged in AM
--- NOTE | 2016-06-09 13:05 | PN ---
<Nancy Reddy - Last Filed: 06/09/16 12:59> Physical Exam: SUBJECTIVE: Patient seen and examined, less congestion, cough, condition improved. Afebrile. Denies sputum production. Azithromycin day 4. BiPap overnight. OBJECTIVE: Vital Signs Period Temp Pulse Resp BP Sys/Rowell Pulse Ox Last 24 Hr 98.1 F-98.6 F 81-97 18-24 110-132/57-81 97-97 GENERAL: The patient is awake, alert, and fully oriented, in no acute distress. HEAD: Normal with no signs of trauma. EYES: PERRL, extraocular movements intact, sclera anicteric, conjunctiva clear. No ptosis. ENT: Ears normal, nares patent, oropharynx clear without exudates, moist mucous membranes. NECK: Trachea midline, full range of motion, supple. LUNGS: Breath sounds equal, slight expiratory wheezes right upper lobe, no crackles, no accessory muscle use. HEART: Regular rate and rhythm, S1, S2 without murmur, rub or gallop. ABDOMEN: Soft, nontender, nondistended, normoactive bowel sounds, no guarding, no rebound, no hepatosplenomegaly, no masses. EXTREMITIES: 2+ pulses, warm, well-perfused, no edema. NEUROLOGICAL: Cranial nerves II through XII grossly intact. Normal speech, gait not observed. PSYCH: Normal mood, normal affect. SKIN: Warm, dry, normal turgor, no rashes or lesions noted Laboratory Results - last 24 hr 06/09/16 06/09/16 06:20 06:20 WBC 13.6 H D RBC 4.45 Hgb 13.4 Hct 40.1 MCV 90.2 MCHC 33.4 RDW 14.7 Plt Count 260 MPV 9.9 Neutrophils % 90.3 H Lymphocytes % 4.8 L D Monocytes % 4.7 D Eosinophils % 0.0 Basophils % 0.2 D Sodium 142 Potassium 4.3 Chloride 106 Carbon Dioxide 25 Anion Gap 11 BUN 22 H D Creatinine 0.7 Random Glucose 136 H Calcium 8.9 Active Medications Generic Name Dose Route Start Last Admin Trade Name Freq PRN Reason Stop Dose Admin Aclidinium [place] 1 puff 06/06/16 11:30 06/09/16 09:20 Tudorza - IH 1 puff BID SUSAN Administration Albuterol Sulfate 1 amp 06/06/16 15:34 06/09/16 10:59 Ventolin 0.083% Nebulizer Soln - NEB 1 amp Q4H PRN Administration SHORT OF BREATH/WHEEZING Azithromycin 250 mg 06/06/16 11:15 06/09/16 09:21 Zithromax - PO 250 mg DAILY SUSAN Administration Budesonide/Formoterol Fumarate 2 puff 06/06/16 22:00 06/09/16 09:20 Symbicort 160/4.5mcg - IH 2 puff BID SUSAN Administration Levothyroxine Sodium 88 mcg 06/06/16 07:00 06/09/16 06:43 Synthroid - PO 88 mcg DAILY@0700 SUSAN Administration Montelukast Sodium 10 mg 06/06/16 10:00 06/09/16 09:21 Singulair - PO 10 mg DAILY SUSAN Administration Pantoprazole Sodium 40 mg 06/06/16 10:00 06/09/16 09:21 Protonix - PO 40 mg DAILY SUSAN Administration Prednisone 40 mg 06/10/16 10:00 Deltasone - PO DAILY SUSAN ASSESSMENT/PLAN: 65 year old female with PMHx of asthma, sleep apnea, hypothyroid, presented with cough, sob, admitted for asthma exacerbation. # Asthma exacerbation: -clinically improved switch to po steroids today 40mg po daily -turdoza 1 puff bid (laba) -singulair 10mg po daily -symbicort 2 puff BID -f/u pulm #Sleep apnea: -was supposed to get sleep study as outpatient -no cpap at home -using bipap here overnight; getting more restful sleep #hypothyroidism: -levothyroxine 88mcg daily #tested positive for flu: -supportive care: out of window for treatment FEN: Fluids: po Electrolytes : wnl Diet: regular VTE prophylaxis: ambulating Disposition:switch to po steroid to day; dc in am Visit type - Emergency Visit Emergency Visit: Yes ED Registration Date: 06/06/16 Care time: The patient presented to the Emergency Department on the above date and was hospitalized for further evaluation of their emergent condition. - New Patient This patient is new to me today: No - Critical Care Critical Care patient: No <Juan Khan - Last Filed: 06/09/16 17:54> Physical Exam: ATTENDING PHYSICIAN STATEMENT I saw and evaluated the patient. I reviewed the resident's note and discussed the case with the resident. I agree with the resident's findings and plan as documented. SUBJECTIVE: seen and evaluated the bedside OBJECTIVE: no wheezing on exam ASSESSMENT AND PLAN: 65 year old female with PMHx of asthma, sleep apnea, hypothyroid, presented with cough, sob, admitted for asthma exacerbation. # Asthma exacerbation: -no wheezing on exam -IV steroids 40mg IVPB q6h changed to PO prednisone 40 by Pulm attending -turdoza 1 puff bid (laba) -singulair 10mg po daily -symbicort 2 puff BID
[2016-06-09] MEDS ORDERED: methylPREDNISolone NA SUCC 40 MG/1 ML VIAL IVPB SCH (18:00)
[2016-06-10] MEDS: LEVOTHYROXINE NA 88 MCG TABLET (FP) PO SCH (06:32)
[2016-06-10] MEDS ORDERED: PT OWN MED DRAWER 7, Y5N ONE (08:58)
[2016-06-10] MEDS: MONTELUKAST NA 10 MG TABLET PO SCH (09:41)
[2016-06-10] MEDS: AZITHROMYCIN 250 MG TABLET (FP) PO SCH (09:41)
[2016-06-10] MEDS: PANTOPRAZOLE 40 MG TABLET (FP) PO SCH (09:41)
[2016-06-10] MEDS: ACLIDINIUM BROMIDE 400 MCG/INH AERO.POWD IH SCH (09:42)
[2016-06-10] MEDS: BUDESONIDE/FORMETEROL FUMARATE 160/4.5 mcg INHALER IH SCH (09:42)
[2016-06-10] MEDS ORDERED: predniSONE 20 MG TABLET (UD) PO SCH (10:00)
[2016-06-10 11:54] VITALS: PULSE 80
--- NOTE | 2016-06-10 13:36 | PN ---
Progress Note, Physician History of Present Illness: PULMONARY ALERT,DOING WELL,-SOB,-COUGH,-CONGESTION - Current Medication List Current Medications: Active Medications Aclidinium [place] (Tudorza -) 1 puff IH BID [facility] Last Admin: 06/10/16 09:42 Dose: 1 puff Albuterol Sulfate (Ventolin 0.083% Nebulizer Soln -) 1 amp NEB Q4H PRN PRN Reason: SHORT OF BREATH/WHEEZING Last Admin: 06/09/16 10:59 Dose: 1 amp Azithromycin (Zithromax -) 250 mg PO DAILY [facility] Last Admin: 06/10/16 09:41 Dose: 250 mg Budesonide/Formoterol Fumarate (Symbicort 160/4.5mcg -) 2 puff IH BID [facility] Last Admin: 06/10/16 09:42 Dose: 2 puff Levothyroxine Sodium (Synthroid -) 88 mcg PO DAILY@0700 [facility] Last Admin: 06/10/16 06:32 Dose: 88 mcg Montelukast Sodium (Singulair -) 10 mg PO DAILY [facility] Last Admin: 06/10/16 09:41 Dose: 10 mg Pantoprazole Sodium (Protonix -) 40 mg PO DAILY [facility] Last Admin: 06/10/16 09:41 Dose: 40 mg Prednisone (Deltasone -) 40 mg PO DAILY [facility] Last Admin: 06/10/16 09:41 Dose: 40 mg - Objective Vital Signs: Vital Signs Temperature 98.5 F 06/10/16 06:00 Pulse Rate 80 06/10/16 10:50 Respiratory Rate 18 06/10/16 06:00 Blood Pressure 104/59 06/10/16 06:00 O2 Sat by Pulse Oximetry (%) 99 06/10/16 10:50 Constitutional: Yes: Well Nourished, Calm Eyes: Yes: WNL HENT: Yes: WNL Neck: Yes: WNL Cardiovascular: Yes: Regular Rate and Rhythm, S1, S2 Respiratory: Yes: CTA Bilaterally Gastrointestinal: Yes: WNL Extremities: Yes: WNL Edema: No Labs: CBC, BMP 06/09/16 06:20 Problem List - Problems (1) Asthma exacerbation Code(s): J45.901 - UNSPECIFIED ASTHMA WITH (ACUTE) EXACERBATION (2) Sleep apnea Code(s): G47.30 - SLEEP APNEA, UNSPECIFIED (3) Hypothyroidism Code(s): E03.9 - HYPOTHYROIDISM, UNSPECIFIED Assessment/Plan IMP CHRONIC PERSISTENT ASTHMA WITH ACUTE EXACERBATION IMPROVED OSAS HYPOTHYROID INFLUENZA A PLAN PREDNISONE WITH TAPER OUTPATIENT INHALED BRONCHODILATORS O2 BIPAP AT CONTOUR GRINDER PEAK FLOW CAN DISCHARGE HOME DR DOWNING Problem List - Problems (1) Asthma exacerbation Code(s): J45.901 - UNSPECIFIED ASTHMA WITH (ACUTE) EXACERBATION (2) Sleep apnea Code(s): G47.30 - SLEEP APNEA, UNSPECIFIED (3) Hypothyroidism Code(s): E03.9 - HYPOTHYROIDISM, UNSPECIFIED
[2016-06-10 13:41] VITALS: BP 120/70; TEMP 9798
--- NOTE | 2016-06-10 13:58 | PN ---
Teaching Attending Note Name of Resident: Nancy Reddy ATTENDING PHYSICIAN STATEMENT I saw and evaluated the patient. I reviewed the resident's note and discussed the case with the resident. I agree with the resident's findings and plan as documented. SUBJECTIVE: seen and evaluated the bedside OBJECTIVE: no wheezing on exam ASSESSMENT AND PLAN: 65 year old female with PMHx of asthma, sleep apnea, hypothyroid, presented with cough, sob, admitted for asthma exacerbation. # Asthma exacerbation: -no wheezing on exam -IV steroids 40mg IVPB q6h changed to PO prednisone 40 by Pulm attending -turdoza 1 puff bid (laba) -singulair 10mg po daily -symbicort 2 puff BID -for discharge today
--- NOTE | 2016-06-10 17:32 | DS ---
Physical Exam: SUBJECTIVE: Patient seen and examined, less cough, no sputum production, slept well on BiPAP. OBJECTIVE: Vital Signs Period Temp Pulse Resp BP Sys/Rowell Pulse Ox Last 24 Hr 98.4 F-9798.0 F 68-80 18-20 104-141/59-81 98-99 PHYSICAL EXAM GENERAL: The patient is awake, alert, and fully oriented, in no acute distress. HEAD: Normal with no signs of trauma. EYES: PERRL, extraocular movements intact, sclera anicteric, conjunctiva clear. ENT: Ears normal, nares patent, oropharynx clear without exudates, moist mucous membranes. NECK: Trachea midline, full range of motion, supple. LUNGS: Breath sounds equal, clear to auscultation bilaterally, no wheezes, no crackles, no accessory muscle use. HEART: Regular rate and rhythm, S1, S2 without murmur, rub or gallop. ABDOMEN: Soft, nontender, nondistended, normoactive bowel sounds, no guarding, no rebound, no hepatosplenomegaly, no masses. EXTREMITIES: 2+ pulses, warm, well-perfused, no edema. NEUROLOGICAL: Cranial nerves II through XII grossly intact. Normal speech, gait not observed. PSYCH: Normal mood, normal affect. SKIN: Warm, dry, normal turgor, no rashes or lesions noted. LABS HOSPITAL COURSE: Date of Admission:06/06/16 Date of Discharge: 06/10/16 This is a 65 year old female with PMHx of asthma, sleep apnea, hypothyroid, presented with cough, sob, admitted for asthma exacerbation. # Asthma exacerbation: -clinically improved switch IV to po steroids today tapered dose -turdoza 1 puff bid (laba) -singulair 10mg po daily -symbicort 2 puff BID -f/u pulm #Sleep apnea: -sleep study as outpatient for home CPAP -using bipap here overnight; getting more restful sleep #hypothyroidism: -levothyroxine 88mcg daily #tested positive for flu: -supportive care: out of window for treatment Minutes to complete discharge: 35 Discharge Summary Reason For Visit: ASTHMA EXACERBATION Current Active Problems Asthma exacerbation (Acute) Hypothyroidism (Chronic) Sleep apnea (Chronic) Condition: Improved - Instructions Diet, Activity, Other Instructions: You were treated for asthma flare. Complete the steroid dosing as instructed, ( decrease by 5mg every 3 days). Please follow up with Dr. Rios to inform him of your clinical improvement. Take your last antibiotic dose tomorrow. Use your inhalers as instructed. Follow up with your primary care doctor this week Have your home evaluated for mold. Continue to stay at a friends house until this issue can be further evaluated and cleaned properly. If your symptoms worsen return to the ER Referrals: Bharathi Cuevas [Primary Care Provider] - Coy Rios MD [Staff Physician] - Disposition: HOME - Home Medications Comprehensive Discharge Medication List: Ambulatory Orders Levothyroxine [Synthroid -] 88 mcg PO DAILY 10/29/15 Montelukast Na [Singulair -] 10 mg PO DAILY 10/29/15 Pantoprazole Sodium [Protonix] 40 mg PO DAILY #30 tablet. 10/29/15 Mometasone/Formoterol [Dulera 100 Mcg/5 Mcg Inhaler] 06/06/16 Tiotropium [place] [Spiriva] 1 inh PO DAILY 06/06/16 Albuterol Sulfate Inhaler - [Ventolin HFA Inhaler -] 1 inh IH Q4H PRN #0 inh Azithromycin [Zithromax 250mg Tablets -] 250 mg PO DAILY #1 tablet 06/08/16 Prednisone [Deltasone -] 10 mg PO DAILY #30 tablet 06/08/16 This patient is new to me today: No Emergency Visit: Yes ED Registration Date: 06/06/16 Care time: The patient presented to the Emergency Department on the above date and was hospitalized for further evaluation of their emergent condition. Critical Care patient: No - Discharge Referral Referred to [facility] No
== END 2016-06-10 14:44 | disposition home or self-care (01) | DRG 141 ==
LOC: JERFT 19:25 → JERBED 06-06 01:10 → J5S 06-06 02:36 → OBSVTOIN 06-06 12:58
PROVIDERS: ADMIT Internal Medicine; ATTEND Internal Medicine
DX: J45.901 Unspecified asthma with (acute) exacerbation (principal); J11.1 Influenza due to unidentified influenza virus with other respiratory manifestations; E03.9 Hypothyroidism, unspecified; G47.33 Obstructive sleep apnea (adult) (pediatric)
CPT/HCPCS: 36415; 71020-TC; 80048; 80053; 83735; 85025; 87804; 93005; 93010; 94150; 94640; 94660; 99283-25; G0378

== ENCOUNTER 2017-12-09 20:07 | Emergency (ER) | payer OTHER ==
--- NOTE | 2017-12-09 20:12 | PDOC ---
Rapid Medical Evaluation Chief Complaint: Pain Time Seen by Provider: 12/09/17 20:11 Medical Evaluation: Allergies Allergy/AdvReac Type Severity Reaction Status Date / Time No Known Allergies Allergy Verified 06/05/16 19:33 I have performed a brief in-person evaluation of this patient. The patient presents with a chief complaint of: pulled open door yesterday and hit herself in right breast with the door. Today her entire right breast hurts Pertinent physical exam findings: could not examine breast in triage I have ordered the following: nothing The patient will proceed to the ED for further evaluation. Discharge Disposition - Diagnosis Breast pain, right - Referrals - Patient Instructions - Post Discharge Activity
[2017-12-09 20:13] VITALS: BP 110/59; PULSE 103; TEMP 98.6
[2017-12-09] MEDS ORDERED: IBUPROFEN 600 MG TABLET (FP) PO ONE ×2 (20:58→21:03)
--- NOTE | 2017-12-09 21:12 | PDOC ---
History of Present Illness - General Chief Complaint: Pain Stated Complaint: PAIN Time Seen by Provider: 12/09/17 20:11 History Source: Patient - History of Present Illness Initial Comments: 12/09/17 20:58 67 year old female c/o right side chest and breast pain reports that she walked into a door last night as per patient. patient reports normal mammogram on september 2017 Past History - Past Medical History Allergies/Adverse Reactions: Allergies Allergy/AdvReac Type Severity Reaction Status Date / Time No Known Allergies Allergy Verified 12/09/17 20:13 Home Medications: Ambulatory Orders Levothyroxine [Synthroid -] 88 mcg PO DAILY 10/29/15 Ibuprofen 600 mg PO QID PRN #20 tablet 12/09/17 Asthma: Yes COPD: No Thyroid Disease: Yes (HYPO) - Surgical History Abdominal Surgery: Yes (TUBAL LIGATION) - Suicide/Smoking/Psychosocial Hx Smoking Status: Yes Smoking History: Never smoked Have you smoked in the past 12 months: No Number of Cigarettes Smoked Daily: 0 Information on smoking cessation initiated: No Hx Alcohol Use: No Drug/Substance Use Hx: No Substance Use Type: None Review of Systems - Review of Systems Able to Perform ROS?: Yes Is the patient limited Maldivian proficient: No Constitutional: No: Symptoms Reported, See HPI, Chills, Diaphoresis, Fever, Loss of Appetite, Malaise, Night Sweats, Weakness, Weight Stable, Unintentional Wgt. Loss, Unexplained wgt Loss, Other Cardiac (ROS): Yes: Other (rib pain) *Physical Exam - Vital Signs Last Vital Signs Temp Pulse Resp BP Pulse Ox 98.6 F 103 H 20 110/59 L 96 12/09/17 20:10 12/09/17 20:10 12/09/17 20:10 12/09/17 20:10 12/09/17 20:10 - Physical Exam General Appearance: Yes: Appropriately Dressed HEENT: positive: Other (pendulous ) Respiratory/Chest: positive: Chest Tender (right side chest tenderness), Lungs Clear, Normal Breath Sounds Cardiovascular: positive: Regular Rhythm, Regular Rate Integumentary: positive: Normal Color, Dry, Warm Neurologic: positive: Fully Oriented, Alert, Normal Mood/Affect ED Treatment Course - RADIOLOGY Radiology Studies Ordered: Category Date Time Status RIBS RIGHT SIDE [RAD] Stat Radiology 12/09/17 20:57 Ordered Progress Note - Progress Note Progress Note: costochondritis P: ribs xray negative *DC/Admit/Observation/Transfer Diagnosis at time of Disposition: Costochondral chest pain, Breast pain, right - Discharge Dispostion Disposition: HOME - Prescriptions Prescriptions: Ibuprofen 600 mg PO QID PRN #20 tablet PRN Reason: Moderate Pain - Referrals Referrals: Bharathi Cuevas [Primary Care Provider] - Call tomorrow - Patient Instructions Printed Discharge Instructions: Costochondritis Additional Instructions: apply ice/ heat to the area. take ibuprofen every 6 hours as needed pain follow up with your doctor as soon as possible. - Post Discharge Activity Forms/Work/School Notes: Back to Work
== END 2017-12-09 21:39 | disposition home or self-care (01) ==
LOC: JERFT 20:07 → JER 20:07 → JERFT 21:39
DX: S29.8XXA Other specified injuries of thorax, initial encounter (principal); M94.0 Chondrocostal junction syndrome [Tietze]; W22.8XXA Striking against or struck by other objects, initial encounter; Y93.89 Activity, other specified; Y92.89 Other specified places as the place of occurrence of the external cause; Y99.8 Other external cause status
CPT/HCPCS: 71101-TC-RT-FY; 99281-25

== ENCOUNTER 2018-03-17 21:55 | Emergency (ER) | payer BC, OTHER ==
[2018-03-17 21:58] VITALS: TEMP 97.7; BMI 30.4
[2018-03-18] MEDS ORDERED: SODIUM CHLORIDE 1,000 ML IV STA (00:21)
[2018-03-18] MEDS ORDERED: morphine CARPU-JECT 4 MG/1 ML DISP.SYRIN IVPUSH ONE (00:21)
[2018-03-18] MEDS ORDERED: KETOROLAC TROMETHAMINE 15 MG/ML VIAL IVPUSH ONE (00:22)
[2018-03-18] MEDS ORDERED: KETOROLAC TROMETHAMINE 15 MG/ML VIAL ONE (00:33)
--- NOTE | 2018-03-18 00:34 | PDOC ---
Attending Attestation - HPI HPI: 03/18/18 00:35 The patient is a 67 year old female, with a significant past medical history of hypothyroidism, who presents to the emergency department with, intermittent, stabbing right flank pain radiating to the RLQ and back. She denies a history of kidney stones. She denies recent fevers, chills, headache or dizziness. She denies recent nausea, vomit, diarrhea or constipation. She denies recent dysuria, frequency, urgency or hematuria. She denies recent chest pain or shortness of breath. Allergies: NKDA Past surgical history: Cholecystectomy - Medical Decision Making 03/18/18 01:52 EXAM: SPIRAL- RENAL-STONE CT HISTORY: Right flank pain COMPARISON: None. FINDINGS: Mild bibasilar subsegmental atelectasis and fibrotic changes Small hiatal hernia Status post cholecystectomy 1.2 cm cyst within the right lobe of the liver No evidence of nephrolithiasis, ureterolithiasis, or obstructive uropathy Normal appendix Large amount of stool in the cecum, ascending colon, hepatic flexure, and transverse colon No evidence of intestinal obstruction, perforation, colitis, pancreatitis, acute diverticular disease, or an intra-abdominal or pelvic abscess. No free fluid Mild spondylotic changes of the spine One or more of the following dose reduction techniques were used: automated exposure control, adjustment of the mA and/or kV according to patient size, use of iterative reconstructive technique. Read by: Darryn Arita MD <Vu Arnold - Last Filed: 03/18/18 01:52> - Resident Resident Name: Aidan Rankin - ED Attending Attestation I have performed the following: I have examined & evaluated the patient, The case was reviewed & discussed with the resident, I agree w/resident's findings & plan, Exceptions are as noted - Physicial Exam PE: 03/18/18 03:23 Agree with exam as documented by resident - Medical Decision Making 03/18/18 03:23 R flank px, consider nephrolithiasis, ascending infection, less likely acs, dissection, hepatobiliary pathology F/u labs, imaging dipso per clinical course Symptomatic improvement No acute pathology on investigation <Gray Kay - Last Filed: 03/18/18 03:26> Attestations - Attestations 03/18/18 00:36 Documentation prepared by Vu Arnold, acting as administrative medical director for Gray Kay MD. <Vu Arnold - Last Filed: 03/18/18 01:52>
--- NOTE | 2018-03-18 00:40 | PDOC ---
History of Present Illness - General Chief Complaint: Pain Stated Complaint: RIGHT SIDE PAIN Time Seen by Provider: 03/18/18 00:09 History Source: Patient Exam Limitations: No Limitations - History of Present Illness Initial Comments: 03/18/18 00:40 Patient is a 67F with history of hypothyroidism and cholecystectomy here today complaining of R sided flank pain for the past three days. The patient describes an intermittent stabbing pain that is worse in her right flank. Denies dysuria and hematuria. Denies fevers, chills, vomiting. Endorses nausea. Denies onset after celebrating holidays (denies increased alcohol or food intake ). Denies chest pain, shortness of breath. Denies history of kidney stones. Denies smoking. Past History - Past Medical History Allergies/Adverse Reactions: Allergies Allergy/AdvReac Type Severity Reaction Status Date / Time No Known Allergies Allergy Verified 03/17/18 21:58 Home Medications: Ambulatory Orders Levothyroxine [Synthroid -] 88 mcg PO DAILY 10/29/15 Ibuprofen 600 mg PO QID PRN #20 tablet 12/09/17 Asthma: Yes COPD: No Thyroid Disease: Yes (HYPO) - Surgical History Abdominal Surgery: Yes (TUBAL LIGATION) - Suicide/Smoking/Psychosocial Hx Smoking Status: Yes Smoking History: Never smoked Have you smoked in the past 12 months: No Number of Cigarettes Smoked Daily: 0 Hx Alcohol Use: No Drug/Substance Use Hx: No Substance Use Type: None Review of Systems - Review of Systems Comments:: 03/18/18 00:42 GENERAL/CONSTITUTIONAL: No fever or chills. No weakness. HEAD, EYES, EARS, NOSE AND THROAT: No change in vision. No sore throat. CARDIOVASCULAR: No chest pain or shortness of breath RESPIRATORY: No cough, wheezing, or hemoptysis. GASTROINTESTINAL: +nausea, no vomiting, diarrhea or constipation. GENITOURINARY: No dysuria, frequency, or change in urination. MUSCULOSKELETAL: No joint or muscle swelling or pain. No neck or back pain. SKIN: No rash NEUROLOGIC: No headache, vertigo, loss of consciousness, or change in strength/ sensation. ALLERGIC/IMMUNOLOGIC: No hives or skin allergy. *Physical Exam - Vital Signs Last Vital Signs Temp Pulse Resp BP Pulse Ox 97.7 F 98 H 18 150/75 98 03/17/18 21:56 03/17/18 21:56 03/17/18 21:56 03/17/18 21:56 03/17/18 21:56 - Physical Exam Comments: 03/18/18 00:42 GENERAL: Awake, alert, and fully oriented, standing up with two hands on bed saying she can't get comfortable HEAD: No signs of trauma, normocephalic, atraumatic EYES: PERRLA, EOMI, sclera anicteric, conjunctiva clear ENT: Auricles normal inspection, hearing grossly normal, nares patent, oropharynx clear without exudates. Moist mucosa NECK: Normal ROM, supple, no lymphadenopathy, JVD, or masses LUNGS: No distress, speaks full sentences, clear to auscultation bilaterally HEART: Regular rate and rhythm, normal S1 and S2, no murmurs, rubs or gallops, peripheral pulses normal and equal bilaterally. ABDOMEN: Soft, nontender, no CVA tenderness normoactive bowel sounds. No guarding, no rebound. No masses EXTREMITIES: Normal inspection, Normal range of motion, no edema. No clubbing or cyanosis. NEUROLOGICAL: Cranial nerves II through XII grossly intact. Normal speech, normal gait, no focal sensorimotor deficits SKIN: Warm, Dry, normal turgor, no rashes or lesions noted. Moderate Sedation - Procedure Monitoring Vital Signs: Procedure Monitoring Vital Signs Temperature 97.7 F 03/17/18 21:56 Pulse Rate 98 H 03/17/18 21:56 Respiratory Rate 18 03/17/18 21:56 Blood Pressure 150/75 03/17/18 21:56 O2 Sat by Pulse Oximetry (%) 98 03/17/18 21:56 ED Treatment Course - LABORATORY CBC & Chemistry Diagram: 03/18/18 00:22 03/18/18 00:22 - RADIOLOGY Radiology Studies Ordered: Category Date Time Status SPIRAL- RENAL-STONE CT [CT] Stat CT Scan 03/18/18 00:22 Ordered Medical Decision Making - Medical Decision Making 03/18/18 00:43 Patient is 67F here today with right sided flank pain. Vitals normal and stable. Patient clinically appears like kidney stone, but ddx includes, but is not limited to: pancreatitis, uti, atypical acs, pneumonia, appendicitis. Will evaluate with cbc, cmp, lipase, ekg, ct. Will treat with fluids, morphine, toradol. 03/18/18 03:07 Laboratory Tests 03/18/18 03/18/18 03/18/18 00:22 00:22 02:14 WBC 15.1 H Hgb 13.8 Plt Count 348 D BUN 18 Creatinine 0.7 Lipase 72 L Urine Nitrite Negative Ur Leukocyte Esterase Trace CBC shows leukocytosis, otherwise normal. CMP normal. UA clear EKG shows normal sinus rhythm with rate of 74. No st elevations/depressions. Normal axis. Normal intervals. No significant t wave abnormalities. Patient reassessed, feeling better but still having some pain. At this point, feel that emergent diagnosis are very unlikely, patient most likely has msk pain. Will discharge with return precautions and instruct to follow up with primary care doctor. *DC/Admit/Observation/Transfer Diagnosis at time of Disposition: Flank pain - Discharge Dispostion Disposition: HOME Condition at time of disposition: Good Decision to Admit order: No - Referrals Referrals: Bharathi Cuevas [Primary Care Provider] - - Patient Instructions Printed Discharge Instructions: DI for Flank Pain Additional Instructions: Please follow up with your primary care doctor this week. Please return if you have any new, worsening or concerning symptoms, especially increasing pain, fever, and chills. - Post Discharge Activity
[2018-03-18 00:44] LABS: BASO % 0.3 % (0-2.0); HEMATOCRIT 39.4 % (32.4-45.2); HEMOGLOBIN 13.8 GM/dL (10.7-15.3); LYMPH % 10.7 % (8-40); MEAN CELL VOLUME 88.8 fl (80-96); MEAN PLT VOLUME 9.3 fl (7.5-11.1); MONO % 6.1 % (3.8-10.2); NEUT % 82.9 % (42.8-82.8); PLATELET COUNT 348 K/MM3 (134-434); RBC 4.44 M/mm3 (3.60-5.2); RDW 13.5 % (11.6-15.6); WHITE BLOOD COUNT 15.1 K/mm3 (4.0-10.0)
[2018-03-18 01:06] LABS: ALBUMIN 3.7 g/dl (3.4-5.0); ALK PHOS 120 U/L (45-117); ANION GAP 7 MMOL/L (8-16); BILIRUBIN,TOTAL 0.4 mg/dL (0.2-1); BLOOD UREA NITROGEN 18 mg/dL (7-18); CHLORIDE 107 mmol/L (98-107); CO2 25 mmol/L (21-32); CREATININE 0.7 mg/dL (0.55-1.3); GLUCOSE,RANDOM 112 mg/dL (74-106); LIPASE 72 U/L (73-393); POTASSIUM 4.4 mmol/L (3.5-5.1); SGOT/AST 16 U/L (15-37); SGPT/ALT 31 U/L (13-61); SODIUM 139 mmol/L (136-145); TOT PROT 7.4 g/dl (6.4-8.2)
[2018-03-18 02:59] LABS: URINE APPEARANCE CLEAR; URINE BILIRUBIN NEGATIVE (<2.0 mg/dL); URINE COLOR YELLOW; URINE GLUCOSE (UA) NEGATIVE (NEGATIVE); URINE KETONE TRACE (NEGATIVE); URINE LEUK ESTERASE TRACE (NEGATIVE); URINE NITRITE NEGATIVE (NEGATIVE); URINE PROTEIN 1+ (NEGATIVE); URINE UROBILINOGEN NEGATIVE mg/dL (0.2-1.0)
[2018-03-18 03:06] LABS: EPI CELLS RARE /HPF (FEW); URINE HYALINE CAST 3 /lpf; URINE MUCUS RARE
[2018-03-18 03:29] VITALS: BP 142/78; PULSE 88
--- NOTE | 2018-03-18 09:08 | EKG ---
Test Reason : Blood Pressure : / mmHG Vent. Rate : 074 BPM Atrial Rate : 074 BPM P-R Int : 158 ms QRS Dur : 092 ms QT Int : 426 ms P-R-T Axes : 004 049 026 degrees QTc Int : 472 ms NORMAL SINUS RHYTHM NORMAL ECG WHEN COMPARED WITH ECG OF 05-JUN-2016 19:39, NO SIGNIFICANT CHANGE WAS FOUND Confirmed by KRISTINA GOLDSTEIN MD ([id number]) on 03/18/2018 9:07:36 AM Referred By: Confirmed By:KRISTINA GOLDSTEIN MD
== END 2018-03-18 03:28 | disposition home or self-care (01) ==
LOC: JER 21:55
PROC: 3E0337Z Introduction of Electrolytic and Water Balance Substance into Peripheral Vein, Percutaneous Approach (ICD-10-PCS; principal; 2018-03-17)
PROC: 3E0333Z Introduction of Anti-inflammatory into Peripheral Vein, Percutaneous Approach (ICD-10-PCS; 2018-03-17)
DX: R10.31 Right lower quadrant pain (principal)
CPT/HCPCS: 36415; 74176; 80053; 81003; 81015; 83690; 85025; 87086; 93005; 93010; 99282-25; J7030

== ENCOUNTER 2018-04-08 10:01 | Emergency (ER) | payer BC, OTHER ==
[2018-04-08 10:20] VITALS: BP 134/83; PULSE 72; TEMP 97.7; BMI 30.4
[2018-04-08] MEDS ORDERED: ALBUTEROL SO4 2.5/IPRATROPIUM 0.5 INH SOL 3 ML VIAL.NEB. NEB ONE ×2 (10:33→10:36)
[2018-04-08] MEDS ORDERED: methylPREDNISolone NA SUCC 125 MG/2 ML VIAL IM ONE (10:33)
[2018-04-08] MEDS ORDERED: methylPREDNISolone NA SUCC 125 MG/2 ML VIAL ONE (10:36)
--- NOTE | 2018-04-08 10:51 | PDOC ---
History of Present Illness - General Chief Complaint: Asthma Stated Complaint: CHEST PAIN Time Seen by Provider: 04/08/18 10:25 History Source: Patient Exam Limitations: Clinical Condition - History of Present Illness Initial Comments: 04/08/18 11:05 Patient with history of asthma present with complaint of 4 day history of persistent dry cough, asthma exacerbation, wheezing, nasal congestion and chest tightness. Patient reported using home rescue inhaler which was relieved symptoms but comes back again. Patient denies fever, chills or body aches. Patient denies any other symptoms Timing/Duration: other (4 days) Past History - Past Medical History Allergies/Adverse Reactions: Allergies Allergy/AdvReac Type Severity Reaction Status Date / Time No Known Allergies Allergy Verified 04/08/18 10:16 Home Medications: Ambulatory Orders Levothyroxine [Synthroid -] 88 mcg PO DAILY 10/29/15 Ibuprofen 600 mg PO QID PRN #20 tablet 12/09/17 Benzonatate [Tessalon Pearls -] 100 mg PO TID PRN #21 capsule 04/08/18 Ipratropium Cardinal 2 spray NS BID PRN #1 spray 04/08/18 Loratadine 10 mg PO DAILY #10 capsule 04/08/18 predniSONE [Deltasone -] 20 mg PO BID 5 Days #10 tablet 04/08/18 Asthma: Yes COPD: No Thyroid Disease: Yes (HYPO) - Surgical History Abdominal Surgery: Yes (TUBAL LIGATION) - Suicide/Smoking/Psychosocial Hx Smoking Status: Yes Smoking History: Never smoked Have you smoked in the past 12 months: No Number of Cigarettes Smoked Daily: 0 Hx Alcohol Use: No Drug/Substance Use Hx: No Substance Use Type: None Review of Systems - Review of Systems Able to Perform ROS?: Yes Is the patient limited Cameroonian proficient: No Constitutional: No: Chills, Fever, Malaise HEENTM: Yes: Symptoms Reported, See HPI, Nose Congestion. No: Eye Pain, Blurred Vision, Tearing, Recent change in vision, Double Vision, Cataracts, Ear Pain, Ocular Prothesis, Ear Discharge, Nose Pain, Tinnitus, Nose Bleeding, Hearing Loss, Throat Pain, Throat Swelling, Mouth Pain, Dental Problems, Difficulty Swallowing, Mouth Swelling, Other Respiratory: Yes: See HPI, Cough, Wheezing. No: Orthopnea, Shortness of Breath , SOB with Exertion, SOB at Rest, Productive cough, Hemoptysis Cardiac (ROS): Yes: Symptoms Reported, See HPI, Chest Tightness. No: Chest Pain , Edema, Irregular Heart Rate, Lightheadedness, Palpitations, Syncope, Other ABD/GI: No: See HPI, Nausea, Vomiting All Other Systems: Reviewed and Negative *Physical Exam - Vital Signs Last Vital Signs Temp Pulse Resp BP Pulse Ox 97.7 F 72 16 134/83 99 04/08/18 10:17 04/08/18 10:17 04/08/18 10:17 04/08/18 10:17 04/08/18 10:17 - Physical Exam Comments: 04/08/18 11:06 GENERAL: Well developed, well nourished. Awake and alert. No acute distress. HEENT: Normocephalic, atraumatic. PERRLA, EOMI. No conjunctival pallor. Sclera are non-icteric. Moist mucous membranes. Oropharynx is clear. NECK: Supple. Full ROM. CARDIOVASCULAR: Regular rate and rhythm. No murmurs, rubs, or gallops. Distal pulses are 2+ and symmetric. PULMONARY: Moderate diffuse wheezing.No evidence of respiratory distress. No rales or rhonchi. ABDOMINAL: Soft. Non-tender. Non-distended. No rebound or guarding. No organomegaly. Normoactive bowel sounds. MUSCULOSKELETAL Normal range of motion at all joints. EXTREMITIES: No cyanosis. No clubbing. SKIN: Warm and dry. Normal capillary refill. No rashes. No jaundice. NEUROLOGICAL: Alert, awake, appropriate. Gait is normal without ataxia. PSYCHIATRIC: Cooperative. Good eye contact. Appropriate mood General Appearance: Yes: Nourished, Appropriately Dressed. No: Apparent Distress Moderate Sedation - Procedure Monitoring Vital Signs: Procedure Monitoring Vital Signs Temperature 97.7 F 04/08/18 10:17 Pulse Rate 72 04/08/18 10:17 Respiratory Rate 16 04/08/18 10:17 Blood Pressure 134/83 04/08/18 10:17 O2 Sat by Pulse Oximetry (%) 99 04/08/18 10:17 ED Treatment Course - Medications Given in the ED: ED Medications Discontinued Medications Generic Name Dose Route Start Last Admin Trade Name Freq PRN Reason Stop Dose Admin Albuterol/Ipratropium 2 amp 04/08/18 10:33 04/08/18 10:38 Duoneb - NEB 04/08/18 10:34 2 amp ONCE ONE Administration Medical Decision Making - Medical Decision Making 04/08/18 11:08 Patient with history of asthma present with complaint of 4 day history of persistent dry cough, asthma exacerbation, wheezing, nasal congestion and chest tightness. Patient reported using home rescue inhaler which was relieved symptoms but comes back again Exam significant for moderate diffuse wheezing with no rhonchi or rales. Patient in no acute respiratory distress. EKG done shows normal sinus rhythm. Nebulizer treatment with Atrovent and albuterol given. Solu-Medrol 125 mg IM given. Patient with improvement in wheezing posttreatment. Patient is stable for discharge on prednisone and Tessalon Perles for cough, nasal spray and antihistamine for nasal congestion with PCP follow-up. 04/08/18 11:09 *DC/Admit/Observation/Transfer Diagnosis at time of Disposition: Bronchospasm Asthma exacerbation Qualifiers: Asthma severity: mild Asthma persistence: intermittent Qualified Code(s): J45.21 - Mild intermittent asthma with (acute) exacerbation URI (upper respiratory infection) Qualifiers: URI type: unspecified URI Qualified Code(s): J06.9 - Acute upper respiratory infection, unspecified - Discharge Dispostion Disposition: HOME Condition at time of disposition: Stable Decision to Admit order: No - Prescriptions Prescriptions: Benzonatate [Tessalon Pearls -] 100 mg PO TID PRN #21 capsule PRN Reason: Cough Ipratropium Cardinal 2 spray NS BID PRN #1 spray PRN Reason: nasal congestion Loratadine 10 mg PO DAILY #10 capsule predniSONE [Deltasone -] 20 mg PO BID 5 Days #10 tablet - Referrals Referrals: Jerry Washington MD [Staff Physician] - - Patient Instructions Printed Discharge Instructions: Asthma -- Adult Additional Instructions: Take medication as prescribed. Increase fluid intake. Follow-up referred vending route servicer if symptoms does not improve in 3 days. - Post Discharge Activity
--- NOTE | 2018-04-09 13:18 | EKG ---
Test Reason : Blood Pressure : / mmHG Vent. Rate : 069 BPM Atrial Rate : 069 BPM P-R Int : 168 ms QRS Dur : 094 ms QT Int : 418 ms P-R-T Axes : 059 053 033 degrees QTc Int : 447 ms NORMAL SINUS RHYTHM WITH SINUS ARRHYTHMIA NORMAL ECG WHEN COMPARED WITH ECG OF 18-MAR-2018 01:10, NO SIGNIFICANT CHANGE WAS FOUND Confirmed by JOSE CENTENO MD ([id number]) on 04/09/2018 1:17:39 PM Referred By: Confirmed By:JOSE CENTENO MD
== END 2018-04-08 11:17 | disposition home or self-care (01) ==
LOC: JERFT 10:01
PROC: 3E0F7GC Introduction of Other Therapeutic Substance into Respiratory Tract, Via Natural or Artificial Opening (ICD-10-PCS; principal; 2018-04-08)
PROC: 3E0233Z Introduction of Anti-inflammatory into Muscle, Percutaneous Approach (ICD-10-PCS; 2018-04-08)
DX: J45.21 Mild intermittent asthma with (acute) exacerbation (principal); J06.9 Acute upper respiratory infection, unspecified
CPT/HCPCS: 93005; 93010; 94640; 96372; 99281-25

== ENCOUNTER 2024-10-13 06:46 | Day surgery (SDC) | payer OTHER ==
[2024-10-06 13:52] VITALS: BMI 28.1
[2024-10-13 07:21] VITALS: RESP 20
[2024-10-13 10:26] VITALS: BP 131/71; PULSE 72; TEMP 98
[2024-10-13] MEDS ORDERED: ACETAMINOPHEN 500 MG TABLET (FP) PO PRN (13:38)
== END 2024-10-13 11:00 | disposition home or self-care (01) ==
LOC: JASU-SURG 06:46
PROVIDERS: ATTEND Pain Medicine Pain Medicine
PROC: 3E0T33Z Introduction of Anti-inflammatory into Peripheral Nerves and Plexi, Percutaneous Approach (ICD-10-PCS; 2024-10-13)
PROC: 3E0T3BZ Introduction of Anesthetic Agent into Peripheral Nerves and Plexi, Percutaneous Approach (ICD-10-PCS; principal; 2024-10-13 09:30)
DX: M47.816 Spondylosis without myelopathy or radiculopathy, lumbar region (principal)

== ENCOUNTER 2024-11-03 06:09 | Day surgery (SDC) | payer OTHER ==
[2024-11-03] MEDS ORDERED: ACETAMINOPHEN 500 MG TABLET (FP) PO PRN (08:38)
[2024-11-03 08:50] VITALS: RESP 20; TEMP 98.2
[2024-11-03 10:30] VITALS: BP 140/81; PULSE 66
== END 2024-11-03 11:18 | disposition home or self-care (01) ==
LOC: JASU-SURG 06:09
PROVIDERS: ATTEND Pain Medicine Pain Medicine
PROC: 3E0T33Z Introduction of Anti-inflammatory into Peripheral Nerves and Plexi, Percutaneous Approach (ICD-10-PCS; 2024-11-03)
PROC: 3E0T3BZ Introduction of Anesthetic Agent into Peripheral Nerves and Plexi, Percutaneous Approach (ICD-10-PCS; principal; 2024-11-03 10:30)
DX: M47.816 Spondylosis without myelopathy or radiculopathy, lumbar region (principal)
CPT/HCPCS: 76000-TC-FY